=== PATIENT | male | born 1955 | race Caucasian/White ===

== ENCOUNTER → 2020-08-18 | Outpatient (CLI) | payer OTHER, SELFPAY | END | disposition home or self-care (01) | LOC: LABSPEC 08-19 10:30 | PROVIDERS: Visit Provider Family Medicine | DX: Z03.818 Encounter for observation for suspected exposure to other biological agents ruled out (principal) | CPT/HCPCS: 87635; U0003 ==

== ENCOUNTER → 2020-09-01 15:00 | Outpatient (CLI) | payer OTHER, SELFPAY | PROVIDERS: Referring Provider Family Medicine; Visit Provider Family Medicine | DX: Z03.818 Encounter for observation for suspected exposure to other biological agents ruled out (principal) | CPT/HCPCS: 87635; U0003 ==

== ENCOUNTER → 2020-09-15 | Outpatient (CLI) | payer OTHER, SELFPAY | END | disposition home or self-care (01) | LOC: LABSPEC 09-16 07:40 | PROVIDERS: Referring Provider Family Medicine; Visit Provider Family Medicine | DX: Z03.818 Encounter for observation for suspected exposure to other biological agents ruled out (principal) | CPT/HCPCS: 87635; U0003 ==

== ENCOUNTER → 2020-09-29 | Outpatient (CLI) | payer OTHER, SELFPAY | END | disposition home or self-care (01) | LOC: LABSPEC 10:42 | PROVIDERS: Referring Provider Family Medicine; Visit Provider Family Medicine | DX: Z03.818 Encounter for observation for suspected exposure to other biological agents ruled out (principal) | CPT/HCPCS: 87635; U0003 ==

== ENCOUNTER → 2020-10-13 | Outpatient (CLI) | payer OTHER, SELFPAY | END | disposition home or self-care (01) | LOC: LABSPEC 12:15 | PROVIDERS: Referring Provider Family Medicine; Visit Provider Family Medicine | DX: Z03.818 Encounter for observation for suspected exposure to other biological agents ruled out (principal) | CPT/HCPCS: 87635; U0003 ==

== ENCOUNTER 2020-12-17 10:48 | Emergency (ER) | payer BC, SELFPAY ==
[2020-12-17 10:53] VITALS: BP 143/82; PULSE 71; RESP 17; TEMP 36.7; O2SAT 97; BMI 22.8
--- NOTE | 2020-12-17 11:37 | CT_ITS ---
STUDY: CT BRAIN WITHOUT CONTRAST REASON FOR EXAM: Male, 65 years old. Syncope RADIATION DOSAGE (If Supplied By Facility): CTDIvol = ( 44.99 ) mGy, DLP = ( 829.85 ) mGycm TECHNIQUE: Transaxial CT imaging of the brain was performed without administration of intravenous contrast material. Individualized dose optimization techniques were used for this CT. COMPARISON: None. FINDINGS: There is no acute bleed or infarct. There are normal white matter tracts. The ventricles are normal in configuration. There is no hydrocephalus. The visualized paranasal sinuses are clear. The mastoid air cells are well aerated. There is no skull fracture. CT/Brain/Head without Contrast IMPRESSION: No acute intracranial abnormality. Electronically Signed: Akash Sibley MD at 12:21 EST Tel , Service support ,
--- NOTE | 2020-12-17 11:38 | EKG12_ITS ---
Test Reason : SYNCOPE Blood Pressure : / mmHG Vent. Rate : 072 BPM Atrial Rate : 072 BPM P-R Int : 204 ms QRS Dur : 076 ms QT Int : 374 ms P-R-T Axes : 041 030 016 degrees QTc Int : 409 ms Normal sinus rhythm Normal ECG Confirmed by MEL ANDERSON, SRAVANTHI ([id number]), editor department TON MIRELES ([id number]) on 12/21/2020 6:50:03 AM Referred By: CHRISTINA Confirmed By:SRAVANTHI LEAL MD
--- NOTE | 2020-12-17 11:40 | ED.VISSUMM ---
- ER Visit Summary Date of Service: 12/17/20 Chief Complaint: Syncope History of Present Illness: The patient is a 65 M who presents after syncopal episode that occurred today. Patient states he was sitting and watching TV. Patient states he got up to pour himself a cup of coffee. Patient states that while he was doing this he felt lightheaded. Patient states his son was there and lowered him to the ground. Patient thinks he may have lost consciousness briefly. Patient denies any headaches. Patient denies any fevers or chills. Patient does admit to recent cough with some sputum production. Patient states he was recently diagnosed with COVID-19. Physical Examination: Vital signs are stable. Patient is afebrile. Patient is in no acute distress. Oral mucosa is pink and moist. Neck is supple. Trachea is midline. There is no JVD noted. Heart was regular rate and rhythm. Lungs are clear and equal bilaterally. Abdomen is soft. Bowel sounds are normal. There is no tenderness. There is no rebound or guarding noted. Skin is warm dry. Cranial nerves II through XII are intact. There are no focal motor or sensory deficits noted. Extremities are intact. There is no calf tenderness or edema. Test Results: EKG was obtained. On my interpretation, there is a normal sinus rhythm with a rate of 72. There are no acute ST or T wave changes. CBC and comprehensive metabolic profile were within normal limits. Urinalysis does not show any evidence of urinary tract infection. Troponin was normal. D-dimer was slightly elevated for the patient's age at 0.72. CT scan of the brain was obtained and was within normal limits. CTA of the chest was obtained. There is no evidence of pulmonary embolism. There are groundglass opacities noted bilaterally that are consistent with patient's COVID-19. These were interpreted by the radiologist and reviewed by myself. Emergency Department Course and Treatment: Orthostatic vital signs were obtained. Patient had a drop in his systolic blood pressure from 73 to 63 going from sitting to standing. Patient states he also felt lightheaded with this. Patient was given IV fluids. Patient was feeling better on reevaluation. Patient is low risk for recurrent syncope according to the [place] syncope risk score. Patient was instructed to follow-up with his primary care physician in 5 to 7 days. Patient was instructed return if worse in any way. Patient understood and was agreeable with the plan. All questions were answered. Disposition: Discharge home Impression: 1. Syncope 2. COVID-19 pneumonia This note was generated with le[employer]elock dictation software. It may contain incorrect words, spelling, and punctuation that were not noted in review of the chart prior to signing ED Disposition - Plan for ED Patient: Disposition: Home or Assisted Living Diagnosis: Syncope, Pneumonia due to COVID-19 virus Instructions: ED Fainting, Uncertain Cause, Coronavirus Disease 2019 (COVID-19): Overview Referrals: David Su DO [Primary Care Provider] - 5-7 Days
[2020-12-17 11:45] VITALS: BP 110/63; BP 126/61; BP 129/73; PULSE 68; PULSE 73; PULSE 79
[2020-12-17 12:02] LABS: Absolute Lymphocyte Count 0.98 X10^3/uL (0.83-4.51); Basophil# 0.01 X10^3/uL; Basophil% 0.2 % (0-1); Hematocrit 44.7 % (40-54); Hemoglobin 14.5 g/dL (13.0-16.5); Lymphocyte # 0.98 X10^3/ul (4.0); Lymphocyte % 15.7 % (19-41); Mean Corp Hgb Conc 32.4 g/dL (32-36); Mean Corpuscular Hgb 28.9 pg (27.0-32.0); Mean Platelet Vol. 9.4 fl (6.2-12.0); Monocyte% 3.2 % (0-10); NRBC Flagged by Analyzer 0 % (0-5); Neutrophil # 5.03 X10^3/uL (2.7-7.7); Neutrophil % 80.6 % (47-70); Platelet Count 206 K/mm3 (150-450); RBC Distribution Width CV 12.7 % (11.6-14.6); RBC Distribution Width SD 41.5 fl (35.1-43.9); Red Blood Count 5.02 M/mm3 (4.6-6.2); White Blood Count 6.2 K/mm3 (4.4-11.0)
[2020-12-17 12:04] LABS: Bacteria 0 SEEN /hpf (None Seen); Red Blood Cells-Urine 0 SEEN /hpf (0-5); Squamous Epithelial Cells - UA 0 SEEN /hpf (0-5)
[2020-12-17 12:09] LABS: Color, Urine Yellow (Yellow); Glucose, Dipstick Normal (Normal); Ketone-Dipstick 15 mg/dl (Negative); Leukocyte Esterase-Dipstick 25 /ul (Negative); Nitrite-Dipstick Negative (Negative); Occult Blood-Urine 10 /ul (Negative); Protein-Dipstick 30 mg/dl (Negative); Specific Gravity, Urine 1.025 (1.002-1.030); Urine Bilirubin Dipstick Negative (Negative); Urine Clarity Sl. Cloudy (Clear); Urine Urobilinogen 1 mg/dl (Normal)
[2020-12-17 12:11] LABS: D-Dimer Quantitative (DVT/PE) 0.72 FEU/ug/m (0.27-0.49)
[2020-12-17 12:14] LABS: Mucous, Urine 2+ /hpf (<or=2+); White Blood Cells 0-5 SEEN /hpf (0-5)
--- NOTE | 2020-12-17 12:14 | CT_ITS ---
STUDY: CTA CHEST REASON FOR EXAM: Male, 65 years old. ELEVATED D-DIMER AND SYNCOPE WITH POSITIVE COVID RADIATION DOSAGE (If Supplied By Facility): CTDIvol = ( 10.78 ) mGy, DLP = ( 390.99 ) mGycm TECHNIQUE: The examination was performed with the intravenous administration of IV 100mL [id number]-[id number]. Post-processing of the angiographic images was performed, with multiplanar reformation and 3D reconstruction. Individualized dose optimization techniques were used for this CT. COMPARISON: None. FINDINGS: There are mild patchy peripheral groundglass opacities in the lingula, left lower lobe and right lung base. There are no focal infiltrates. There are no pleural effusions. There is no pneumothorax. There is no evidence of pulmonary embolus. There is no evidence of thoracic aortic aneurysm or dissection. The heart and pericardium are within normal limits. There are coronary artery calcifications noted. There is no thoracic lymphadenopathy. Images through the upper abdomen demonstrate no significant abnormality. There are no destructive osseous lesions. CT/CTA Chest W/WO Contrast IMPRESSION: No evidence of pulmonary embolus. No evidence of thoracic aortic aneurysm or dissection. Mild patchy bilateral groundglass opacities, consistent with pneumonia in this COVID positive patient. Coronary artery disease. Electronically Signed: Akash Sibley MD at 12:54 EST Tel , Service support ,
[2020-12-17 12:15] LABS: Amorphous Sediment 1+
[2020-12-17 12:15] LABS: AST(SGOT) 26 U/L (15-37); Alanine Aminotransfer ALT/SGPT 39 U/L (16-61); Albumin, Serum 3.6 g/dL (3.2-5.0); Alkaline Phosphatase 108 U/L (45-117); Anion Gap 6 (5-15); BUN 18 mg/dL (7-18); BUN/Creat Ratio 16.2 RATIO (10-20); Calcium,Total 8.5 mg/dL (8.5-10.1); Chloride 106 mmol/L (98-107); Creatinine, Serum 1.11 mg/dL (0.70-1.30); EST Glomerular Filtration Rate 70 mL/min (>60); Est Glom Filt Rate - Afr Amer 85 mL/min (>60); Estimated Creatinine Clearance 68.98 ml/min; Globulin 3.5 g/dL (2.2-4.2); Glucose 117 mg/dL (74-106); Potassium 4.3 mmol/L (3.5-5.1); Protein, Total 7.1 g/dL (6.4-8.2); Sodium Level 139 mmol/L (136-145)
[2020-12-17 12:52] VITALS: BP 122/67; PULSE 72; RESP 14; O2SAT 98
[2020-12-17] MEDS: 0.9% Normal Saline 1,000 ML 1000 ML IV (13:36)
[2020-12-17 13:39] VITALS: BP 122/67; PULSE 72; RESP 14; TEMP 36.8; O2SAT 100
[2020-12-17 14:40] VITALS: BP 127/64; PULSE 74; RESP 16; O2SAT 99
== END 2020-12-17 15:33 | disposition home or self-care (01) ==
PROVIDERS: Emergency Provider Emergency Medicine; PCP Family Medicine
DX: R55 Syncope and collapse (principal); U07.1 COVID-19; J12.82 Pneumonia due to coronavirus disease 2019; Z72.0 Tobacco use
CPT/HCPCS: 70450; 71275; 80053; 81001; 84484; 85025; 85379; 93005; 96360; 99285; J7030; Q9967; A4216